=== PATIENT | female | born 1980 | race Caucasian/White ===

== ENCOUNTER → 2018-09-08 | Outpatient (CLI) | payer MEDICAID | END | disposition home or self-care (01) | LOC: U/S 15:21 | DX: O20.0 Threatened abortion (principal); O34.81 Maternal care for other abnormalities of pelvic organs, first trimester; N83.202 Unspecified ovarian cyst, left side; O09.511 Supervision of elderly primigravida, first trimester; Z3A.08 8 weeks gestation of pregnancy | CPT/HCPCS: 76801; 76817 ==